=== PATIENT | male | born 1965 | race Caucasian/White ===

== ENCOUNTER 2016-04-29 12:19 | Emergency (ER) | payer OTHER ==
[2016-04-29] MEDS ORDERED: SODIUM CHLORIDE 0.9% 1,000 ML ONE (13:21)
[2016-04-29] MEDS ORDERED: PIPER/TAZO 3.375 GM PYXIS ONE (13:21)
[2016-04-29] MEDS ORDERED: SODIUM CHLORIDE 0.9% 100 ML IV ONE (13:21)
[2016-04-29] MEDS ORDERED: VANCOMYCIN 2,500 MG in SODIUM CHLORIDE 0.9% 500 ML IV ONE (13:35)
== END 2016-04-29 17:29 | disposition left against medical advice (07) ==
LOC: ER 12:19
DX: N49.2 Inflammatory disorders of scrotum (principal)
CPT/HCPCS: 36415; 71010; 76870; 80053; 81001; 83605; 85025; 87040; 96361; 96365; 96366; 96367; 99285; J7040

== ENCOUNTER 2016-05-05 10:00 | Emergency (ER) | payer OTHER | END 2016-05-05 12:39 | disposition home or self-care (01) | LOC: ER 10:40 | DX: N50.89 Other specified disorders of the male genital organs (principal) | CPT/HCPCS: 36415; 80053; 83880; 85025 ==